=== PATIENT | female | born 1950 | race African-American/Black ===

== ENCOUNTER 2022-03-31 15:18 | Inpatient (IN) | payer MEDICARE, MEDICAID ==
[2022-03-31] MEDS ORDERED: Morphine 2 MG/ML VIAL SLOW IVP PRN (15:39)
[2022-03-31] MEDS: Ondansetron PF 4 MG/2 ML Vial IVP PRN (16:23)
[2022-03-31] MEDS: hydrALAZINE 20 MG/ML VIAL SLOW IVP PRN (16:23)
[2022-03-31] MEDS: Sodium Chloride 0.9% 1,000 ML IV SCH (16:23)
[2022-03-31] MEDS: Piperacillin/Tazobactam 3.375 GM in Sodium Chloride 0.9% 100 ML IVPB SCH (17:00)
[2022-03-31] MEDS ORDERED: Piperacillin/Tazobactam 3.375 GM in Sodium Chloride 0.9% 100 ML IVPB SCH (18:00)
[2022-03-31] MEDS: Famotidine/PF 20 mg/2ml Vial SLOW IVP SCH (21:15)
[2022-03-31 21:37] LABS: Lactic Acid 2.5 mmol/L (0.5-2.2)
[2022-04-01] MEDS: Piperacillin/Tazobactam 3.375 GM in Sodium Chloride 0.9% 100 ML IVPB SCH ×2 (00:46→16:26)
[2022-04-01] MEDS: Sodium Chloride 0.9% 1,000 ML IV SCH ×2 (03:04→16:33)
[2022-04-01 04:22] LABS: #Eosinphils 0.1 10x3/uL (0.0-0.5); #Monocytes 1.6 10x3/uL (0.0-1.1); #Neutrophils 8.3 10x3/uL (1.5-8.4); %Basophils 0.2 % (0.0-2.0); %Eosinophils 0.7 % (0.0-6.0); %Lymphocytes 15.5 % (18.0-47.0); %Monocytes 13.6 % (0.0-10.0); %Neutrophils 69.4 % (40.0-75.0); Mean Corpuscular HGB CONC 33.2 g/dL (32.0-36.0); Mean Corpuscular Hemoglobin 29.7 pg (27.0-33.0); Mean Corpuscular Volume 89.4 fl (81.6-98.3); Mean Platelet Volume 9.3 fl (7.4-10.4); Platelet Count 375 10x3/uL (150-450); RBC Distribution Width 15.7 % (11.5-14.5); Red Blood Cell (RBC) Count 4.72 10x6/uL (3.90-5.03)
[2022-04-01] MEDS: hydrALAZINE 20 MG/ML VIAL SLOW IVP PRN ×2 (04:39→16:45)
[2022-04-01 04:41] LABS: ALT (SGPT) 24 U/L (8-55); AST (SGOT) 30 U/L (5-34); Albumin 3.3 g/dL (3.4-4.8); Alkaline Phosphatase 108 U/L (40-110); Anion Gap 22 mmol/L (10-20); BUN (Urea Nitrogen) 45 mg/dL (9.8-20.1); Bilirubin, Total 0.4 mg/dL (0.2-1.2); Calc. Creatinine Clearance 20 mL/min (70-130); Calcium 9.3 mg/dL (7.8-10.44); Carbon Dioxide 23 mmol/L (23-31); Chloride 103 mmol/L (98-107); Estimated GFR 15; Globulin 3.5 g/dL (2.4-3.5); Glucose 107 mg/dL (83-110); Potassium 4.5 mmol/L (3.5-5.1); Protein, Total 6.8 g/dL (5.8-8.1); Sodium 143 mmol/L (136-145)
[2022-04-01] MEDS: Heparin 5,000 UNITS/ML VIAL SC SCH ×3 (11:17→21:49)
[2022-04-01] MEDS: Famotidine/PF 20 mg/2ml Vial SLOW IVP SCH (21:46)
[2022-04-02] MEDS: Piperacillin/Tazobactam 3.375 GM in Sodium Chloride 0.9% 100 ML IVPB SCH (01:48)
[2022-04-02] MEDS: Sodium Chloride 0.9% 1,000 ML IV SCH ×2 (04:21→08:08)
[2022-04-02] MEDS: hydrALAZINE 20 MG/ML VIAL SLOW IVP PRN ×2 (04:31→13:25)
[2022-04-02 05:13] LABS: #Eosinphils 0.1 10x3/uL (0.0-0.5); #Monocytes 0.8 10x3/uL (0.0-1.1); #Neutrophils 5.2 10x3/uL (1.5-8.4); %Basophils 0.4 % (0.0-2.0); %Lymphocytes 20.1 % (18.0-47.0); %Monocytes 9.8 % (0.0-10.0); %Neutrophils 68.2 % (40.0-75.0); Mean Corpuscular HGB CONC 32.1 g/dL (32.0-36.0); Mean Corpuscular Hemoglobin 29.6 pg (27.0-33.0); Mean Corpuscular Volume 92.3 fl (81.6-98.3); Mean Platelet Volume 9.4 fl (7.4-10.4); Platelet Count 315 10x3/uL (150-450); RBC Distribution Width 15.9 % (11.5-14.5); Red Blood Cell (RBC) Count 4.39 10x6/uL (3.90-5.03); White Blood Cell (WBC) Count 7.6 10x3/uL (3.5-10.5)
[2022-04-02 05:21] LABS: Anion Gap 16 mmol/L (10-20); BUN (Urea Nitrogen) 37 mg/dL (9.8-20.1); Calc. Creatinine Clearance 24 mL/min (70-130); Carbon Dioxide 21 mmol/L (23-31); Chloride 111 mmol/L (98-107); Estimated GFR 20; Glucose 85 mg/dL (83-110); Magnesium 2.8 mg/dL (1.6-2.6); Potassium 3.9 mmol/L (3.5-5.1); Sodium 144 mmol/L (136-145)
[2022-04-02] MEDS ORDERED: hydrALAZINE 20 MG/ML VIAL SLOW IVP SCH (08:15)
[2022-04-02] MEDS: Heparin 5,000 UNITS/ML VIAL SC SCH ×3 (08:24→21:59)
[2022-04-02] MEDS ORDERED: Labetalol HCl 100 MG/20 ML VIAL SLOW IVP SCH (10:00)
[2022-04-02] MEDS ORDERED: Labetalol HCl 100 MG/20 ML VIAL ONE (10:33)
[2022-04-02] MEDS ORDERED: cloNIDine 0.1 MG TAB PO SCH (12:30)
[2022-04-02] MEDS: Lactated Ringer's 1,000 ML IV SCH (12:54)
[2022-04-02] MEDS: Labetalol HCl 100 MG/20 ML VIAL SLOW IVP PRN ×2 (16:18→23:24)
[2022-04-02] MEDS: Famotidine/PF 20 mg/2ml Vial SLOW IVP SCH (21:59)
[2022-04-02] MEDS: CEFAZOLIN 1 GM in Sodium Chloride 0.9% 100 ML IVPB SCH (21:59)
[2022-04-02] MEDS: Ondansetron PF 4 MG/2 ML Vial IVP PRN (22:50)
[2022-04-03] MEDS: Lactated Ringer's 1,000 ML IV SCH (01:27)
[2022-04-03] MEDS: hydrALAZINE 20 MG/ML VIAL SLOW IVP PRN ×3 (02:57→13:19)
[2022-04-03 05:26] LABS: #Eosinphils 0.1 10x3/uL (0.0-0.5); #Monocytes 0.7 10x3/uL (0.0-1.1); %Basophils 0.4 % (0.0-2.0); %Eosinophils 1.6 % (0.0-6.0); %Lymphocytes 20.1 % (18.0-47.0); %Neutrophils 66.8 % (40.0-75.0); Hemoglobin 11.4 g/dL (12.0-15.5); Mean Corpuscular HGB CONC 31.6 g/dL (32.0-36.0); Mean Corpuscular Hemoglobin 29.5 pg (27.0-33.0); Mean Corpuscular Volume 93.3 fl (81.6-98.3); Mean Platelet Volume 9.3 fl (7.4-10.4); Platelet Count 301 10x3/uL (150-450); Red Blood Cell (RBC) Count 3.87 10x6/uL (3.90-5.03); White Blood Cell (WBC) Count 7.4 10x3/uL (3.5-10.5)
[2022-04-03 05:33] LABS: Anion Gap 13 mmol/L (10-20); BUN (Urea Nitrogen) 24 mg/dL (9.8-20.1); Calc. Creatinine Clearance 30 mL/min (70-130); Calcium 8.9 mg/dL (7.8-10.44); Carbon Dioxide 24 mmol/L (23-31); Chloride 115 mmol/L (98-107); Estimated GFR 26; Glucose 83 mg/dL (83-110); Magnesium 2.4 mg/dL (1.6-2.6); Potassium 4.3 mmol/L (3.5-5.1); Sodium 148 mmol/L (136-145)
[2022-04-03] MEDS ORDERED: Nitroglycerin 2% Ointment 1 INCH/1 GM Packet TOP SCH (06:15)
[2022-04-03] MEDS: Labetalol HCl 100 MG/20 ML VIAL SLOW IVP PRN ×3 (06:29→16:25)
[2022-04-03] MEDS: Heparin 5,000 UNITS/ML VIAL SC SCH ×3 (08:17→20:46)
[2022-04-03] MEDS: Sodium Chloride 0.45% 1,000 ML IV SCH ×2 (08:17→20:49)
[2022-04-03] MEDS: CEFAZOLIN 1 GM in Sodium Chloride 0.9% 100 ML IVPB SCH ×2 (08:17→20:45)
[2022-04-03 15:12] VITALS: BMI 28.1
[2022-04-03] MEDS: Nitroglycerin 2% Ointment 1 INCH/1 GM Packet TOP SCH (20:46)
[2022-04-03] MEDS: Famotidine/PF 20 mg/2ml Vial SLOW IVP SCH (20:46)
[2022-04-03] MEDS: cloNIDine 0.1 MG TAB PO SCH (20:46)
[2022-04-04] MEDS: hydrALAZINE 20 MG/ML VIAL SLOW IVP PRN ×2 (01:22→04:50)
[2022-04-04 05:26] LABS: Anion Gap 15 mmol/L (10-20); BUN (Urea Nitrogen) 20 mg/dL (9.8-20.1); Calc. Creatinine Clearance 35 mL/min (70-130); Calcium 8.6 mg/dL (7.8-10.44); Carbon Dioxide 23 mmol/L (23-31); Chloride 115 mmol/L (98-107); Estimated GFR 32; Glucose 82 mg/dL (83-110); Potassium 3.6 mmol/L (3.5-5.1); Sodium 149 mmol/L (136-145)
[2022-04-04] MEDS: Levothyroxine 100 MCG SDV IVP SCH ×2 (07:37→07:38)
[2022-04-04] MEDS: cloNIDine 0.1 MG TAB PO SCH ×2 (10:08→22:15)
[2022-04-04] MEDS: Heparin 5,000 UNITS/ML VIAL SC SCH ×3 (10:09→22:12)
[2022-04-04] MEDS: CEFAZOLIN 1 GM in Sodium Chloride 0.9% 100 ML IVPB SCH ×2 (10:14→22:21)
[2022-04-04] MEDS: Nitroglycerin 2% Ointment 1 INCH/1 GM Packet TOP SCH (10:14)
[2022-04-04] MEDS: Labetalol HCl 100 MG/20 ML VIAL SLOW IVP PRN (12:45)
[2022-04-04] MEDS: Sodium Chloride 0.45% 1,000 ML IV SCH (12:49)
[2022-04-04] MEDS: hydrALAZINE 25 MG TAB PO SCH (22:17)
[2022-04-04] MEDS: Famotidine/PF 20 mg/2ml Vial SLOW IVP SCH (22:20)
[2022-04-05 05:36] LABS: Anion Gap 12 mmol/L (10-20); BUN (Urea Nitrogen) 14 mg/dL (9.8-20.1); Calc. Creatinine Clearance 38 mL/min (70-130); Calcium 8.4 mg/dL (7.8-10.44); Carbon Dioxide 23 mmol/L (23-31); Chloride 112 mmol/L (98-107); Estimated GFR 34; Glucose 76 mg/dL (83-110); Potassium 4.5 mmol/L (3.5-5.1); Sodium 142 mmol/L (136-145)
[2022-04-05 05:37] LABS: #Basophils 0.1 10x3/uL (0.0-0.2); #Eosinphils 0.2 10x3/uL (0.0-0.5); #Monocytes 0.6 10x3/uL (0.0-1.1); #Neutrophils 4.6 10x3/uL (1.5-8.4); %Basophils 0.9 % (0.0-2.0); %Lymphocytes 18.2 % (18.0-47.0); %Monocytes 8.1 % (0.0-10.0); %Neutrophils 65.6 % (40.0-75.0); Hemoglobin 11.1 g/dL (12.0-15.5); Mean Corpuscular HGB CONC 32.5 g/dL (32.0-36.0); Mean Corpuscular Volume 92.4 fl (81.6-98.3); Mean Platelet Volume 9.5 fl (7.4-10.4); Platelet Count 272 10x3/uL (150-450); RBC Distribution Width 15.8 % (11.5-14.5); White Blood Cell (WBC) Count 6.9 10x3/uL (3.5-10.5)
[2022-04-05] MEDS ORDERED: Levothyroxine Sodium 125 MCG TAB PO SCH ×2 (06:00)
[2022-04-05] MEDS ORDERED: Atenolol 50 MG TAB PO SCH (09:00)
[2022-04-05] MEDS ORDERED: Amlodipine 10 MG TAB PO SCH (09:00)
[2022-04-05] MEDS ORDERED: Sodium Chloride 0.9% 100 ML ONE (09:04)
[2022-04-05] MEDS: Heparin 5,000 UNITS/ML VIAL SC SCH ×2 (09:04→14:00)
[2022-04-05] MEDS ORDERED: CEFAZOLIN 1 GM VIAL ONE (09:04)
[2022-04-05] MEDS: cloNIDine 0.1 MG TAB PO SCH ×2 (09:07→14:12)
[2022-04-05] MEDS: hydrALAZINE 25 MG TAB PO SCH ×2 (09:07→14:12)
[2022-04-05] MEDS: CEFAZOLIN 1 GM in Sodium Chloride 0.9% 100 ML IVPB SCH (09:08)
[2022-04-05] MEDS: Levothyroxine 100 MCG SDV IVP SCH (14:22)
[2022-04-05 16:42] VITALS: BP 121/56; TEMP 97.5
== END 2022-04-05 17:30 | DRG 389 ==
LOC: INTOOBSV 15:18 → CSHTELE 15:18 → OBSVTOIN 15:37
PROVIDERS: ADMIT Internal Medicine; ATTEND Internal Medicine
DX: K56.600 Partial intestinal obstruction, unspecified as to cause (principal); I69.351 Hemiplegia and hemiparesis following cerebral infarction affecting right dominant side; N39.0 Urinary tract infection, site not specified; Z20.822 Contact with and (suspected) exposure to COVID-19; E03.9 Hypothyroidism, unspecified; E86.0 Dehydration; E83.52 Hypercalcemia; I12.9 Hypertensive chronic kidney disease with stage 1 through stage 4 chronic kidney disease, or unspecified chronic kidney disease; I16.0 Hypertensive urgency; N18.30 Chronic kidney disease, stage 3 unspecified; E78.5 Hyperlipidemia, unspecified; Z79.82 Long term (current) use of aspirin; I69.320 Aphasia following cerebral infarction; Z79.899 Other long term (current) drug therapy; Z79.890 Hormone replacement therapy; Z90.49 Acquired absence of other specified parts of digestive tract; Z90.710 Acquired absence of both cervix and uterus
CPT/HCPCS: 36415; 71045; 74018; 74250; 80048; 80053; 83605; 83735; 85025; 87324; 87449; 94760; J0360; J0690; J1644; J2405; J2543; J3490; J7050; J7120; S0028; U0003; U0005